=== PATIENT | male | born 1940 | race Caucasian/White ===

== ENCOUNTER 2020-09-23 17:05 | Emergency (ER) | payer OTHER ==
[~2020-09-23] VITALS: Ht 175.3 cm; Wt 93.2 kg
[2020-09-23 18:04] LABS: ABSOLUTE NEUTROPHILS 9.5 thou/uL (1.4-8.2); BASOPHILS 0.4 % (0.0-2.0); EOSINOPHILS 0.4 % (0.0-3.0); HEMATOCRIT 25.5 % (42.0-52.0); HEMOGLOBIN 8.7 gm/dL (14.0-18.0); LYMPHOCYTES 13.3 % (24.0-44.0); MCH 33.3 pg (26.0-34.0); MCHC 34.1 g/dL (28.0-37.0); MCV 97.5 fL (80.0-100.0); MONOCYTES 8.1 % (1.0-8.0); POLYS 77.8 % (36.0-66.0); RBC 2.61 mil/uL (4.50-6.00); RDW 14.2 % (10.5-14.5); WBC 12.2 thou/uL (4.0-11.0)
[2020-09-23 18:15] LABS: CREATININE 1.6 mg/dL (0.7-1.3); POTASSIUM 3.8 mmol/L (3.5-5.1)
[2020-09-23 18:23] LABS: ALBUMIN 3.3 g/dL (3.4-5.0); TOTAL BILIRUBIN 0.5 mg/dL (0.2-1.0); TOTAL PROTEIN 6.3 g/dL (6.4-8.2)
[2020-09-23 18:25] LABS: TROPONIN-I 19.02 ng/mL (<0.06)
[2020-09-23 18:33] LABS: PLATELET COUNT 246 thou/uL (150-400)
[2020-09-23 18:34] LABS: LARGE PLATELETS RARE
[2020-09-23] MEDS ORDERED: LIPITOR 40 MG T40 M1 PO (18:44)
[2020-09-23] MEDS ORDERED: ASA81BEC PO (18:44)
[2020-09-23] MEDS ORDERED: TOUJEO SOL300 UNIT/1 SUBQ (18:45)
[2020-09-23] MEDS ORDERED: ISOSORBIDE MONO30 M1 PO (18:45)
[2020-09-23] MEDS ORDERED: FLOMAX0.4 MG PO (18:46)
[2020-09-23] MEDS ORDERED: GLIMEPIRIDE4 MG PO (18:46)
[2020-09-23] MEDS ORDERED: TOPROL XL50 MG PO (18:50)
[2020-09-23] MEDS ORDERED: NEURONTIN 300M300 M2 PO (18:50)
[2020-09-23] MEDS ORDERED: NOVOLOG FL100 UNIT/M SUBQ (18:51)
[2020-09-23 19:16] LABS: INR 1.1; PROTIME 11.6 Seconds (9.3-11.4)
[2020-09-23 19:58] LABS: HEMATOCRIT 24.6 % (42.0-52.0); HEMOGLOBIN 8.2 gm/dL (14.0-18.0); MCH 32.8 pg (26.0-34.0); MCHC 33.2 g/dL (28.0-37.0); MCV 98.7 fL (80.0-100.0); RBC 2.5 mil/uL (4.50-6.00); WBC 10.1 thou/uL (4.0-11.0)
[2020-09-23 21:15] VITALS: BP 114/57
--- NOTE | 2020-09-24 07:17 | EKG ---
[facility] [place] [address] ELECTROCARDIOGRAM REPORT Name: CARIDAD LE Room #: [facility]P [facility] [id number] Admission: 09/23/20 Attend Phys: Discharge: 09/23/20 Date of : 36 Report #: [id number] [facility] ED Test Date: 2020-09-23 Test Time: 17:07:51 Pat Name: CARIDAD LE Department: Room: Gender: M Horse Trainer: SHARON : 1940 Requested By: Shawn Villafana Order Number: [id number] MD: Theodore Jurado Measurements Intervals [place] Rate: 113 P: 67 ID: [id number] QRS: 28 QRSD: 101 T: 182 QT: 340 QTc: 467 Interpretive Statements Sinus tachycardia Multiple ventricular premature complexes Abnormal R-wave progression, late transition Inferior infarct, 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
== END 2020-09-23 21:19 | disposition short-term general hospital (02) ==
LOC: ER 17:05
PROVIDERS: Emergency Medicine
DX: I21.4 Non-ST elevation (NSTEMI) myocardial infarction (principal); E11.9 Type 2 diabetes mellitus without complications; Z79.899 Other long term (current) drug therapy; Z79.4 Long term (current) use of insulin; Z79.82 Long term (current) use of aspirin